=== PATIENT | male | born 1970 | race Caucasian/White ===

== ENCOUNTER 2018-04-16 18:43 | Inpatient (IN) | payer OTHER ==
[~2018-04-16] VITALS: Ht 185.4 cm; Wt 103.0 kg
--- NOTE | ~2018-04-16 | EKG ---
[address] [place] [address] ELECTROCARDIOGRAM REPORT Name: MAYA HARGROVE Room #: 360-P [facility] M.R.#: [id number] Admission: 04/16/18 Attend Phys: Cody Junior MD Discharge: Date of : 70 Report #: [id number] THIS REPORT FOR: //name// [facility] ED Test Date: 2018-04-16 Test Time: 18:59:31 Pat Name: MAYA HARGROVE Department: Room: 360 Gender: M Boxing Instructor: MADALYN : 1970 Requested By: Davi Carver Order Number: [id number] MD: Minh Mathias Measurements Intervals [place] Rate: 83 P: 46 MD: 158 QRS: -14 QRSD: 90 T: 21 QT: 369 QTc: 434 Interpretive Statements Sinus rhythm Left ventricular hypertrophy Compared to ECG 05/20/2012 07:21:09 Left ventricular hypertrophy now present Electronically Signed On 04-17-2018 8:05:01 PICK UP ATTENDANT by Minh Mathias [email or web address] <ELECTRONICALLY SIGNED> By: Minh Mathias MD, [facility] 04/17/18 08 58 58 Minh Mathias MD, FACC /EPI
[~2018-04-16 18:43] MED LIST: ABILIFY 2 MG2 MG PO; ADULT LOW DOSE81 MG PO; AMBIEN 10 MG TA10 MG PO; AMITRIPTYLINE H25 M2 PO; ATIVAN1 MG PO; CIPROFLOXACIN500 M1 PO; FLEXERIL PO; FLUOXETINE HCL40 MG PO; HYDROCHLOROTHIA25 M1 PO; HYDROCODON-ACE1 EAC7 PO; HYDROCODON-ACE1 EACH PO; HYDROCODONE; HYDROCODONE-AP1 EAC6 PO; LISINOPRIL20 MG PO; LUVOX CR150 MG PO; MULTIVITAMINS PO; NEURONTIN600 MG PO; PERCOCET 5-3251 EACH PO; PERCOCET 7.5-31 EACH PO; PERCOCET 7.5-51 EACH PO; PROZAC 20 MG20 M1 PO; RELAFEN750 MG PO; TIZANIDINE HCL 22 M1 PO; VERAPAMIL ER100 MG PO; WELLBUTRIN XL150 M1 PO; XANAX XR3 MG PO; ZANAFLEX2 M1 PO; ZOFRAN 4 MG ORAL4 M1 DIS
[2018-04-16 18:45] VITALS: BP 140/98
[2018-04-16] MEDS ORDERED: LYRICA 50 MG50 MG PO (19:00)
[2018-04-16 19:29] LABS: ABSOLUTE NEUTROPHILS 4.3 thou/uL (1.4-8.2); BASOPHILS 0.8 % (0.0-2.0); EOSINOPHILS 2.3 % (0.0-3.0); HEMATOCRIT 43.1 % (42.0-52.0); HEMOGLOBIN 15.1 gm/dL (14.0-18.0); LYMPHOCYTES 28.1 % (24.0-44.0); MCH 32.2 pg (26.0-34.0); MCV 91.9 fL (80.0-100.0); MONOCYTES 5.5 % (1.0-8.0); PLATELET COUNT 175 thou/uL (150-400); POLYS 63.3 % (36.0-66.0); RBC 4.69 mil/uL (4.50-6.00); RDW 13.4 % (10.5-14.5); WBC 6.8 thou/uL (4.0-11.0)
[2018-04-16 19:40] LABS: ANION GAP 10 mmol/L (7-16); BUN 11 mg/dL (7-18); CALCIUM 8.7 mg/dL (8.5-10.1); CHLORIDE 105 mmol/L (98-107); CO2 27 mmol/L (21-32); CREATININE 1.2 mg/dL (0.7-1.3); GLUCOSE 94 mg/dL (74-106); POTASSIUM 3.6 mmol/L (3.5-5.1); SODIUM 142 mmol/L (136-145)
[2018-04-16 19:45] LABS: URINE BILIRUBIN NEGATIVE (Negative); URINE BLOOD NEGATIVE (Negative); URINE CLARITY CLEAR; URINE COLOR YELLOW; URINE GLUCOSE-RANDOM* NEGATIVE (Negative); URINE KETONES NEGATIVE (Negative); URINE LEUKOCYTES-REFLEX NEGATIVE (Negative); URINE NITRITE-REFLEX NEGATIVE (Negative); URINE PROTEIN (DIPSTICK) NEGATIVE (Negative); URINE SPECIFIC GRAVITY <= 1.005 (1.005-1.035); URINE UROBILINOGEN 0.2 E.U./dl (0.2-1.0)
[2018-04-16 19:48] LABS: ALBUMIN 3.7 g/dL (3.4-5.0); SALICYLATE < 2.8 mg/dL (2.8-20.0); SGOT 31 U/L (15-37); SGPT 34 U/L (30-65); TOTAL BILIRUBIN 0.8 mg/dL (<0.1-1.0); TOTAL PROTEIN 7.3 g/dL (6.4-8.2); TROPONIN-I <0.06 ng/mL (<0.06)
[2018-04-16 19:53] LABS: AMP/METHAMP Negative (Negative); BARBITURATES Negative (Negative); BENZODIAZEPINES Negative (Negative); COCAINE Negative (Negative); METHADONE Negative (Negative); OPIATES Negative (Negative); PCP Negative (Negative)
[2018-04-16 21:00] VITALS: BP 130/85
[2018-04-16 21:30] VITALS: BP 125/92
[2018-04-16 22:06] VITALS: BP 138/91
[2018-04-17 05:11] VITALS: BP 164/92
[2018-04-17 06:41] LABS: CREATININE 1.2 mg/dL (0.7-1.3); POTASSIUM 3.5 mmol/L (3.5-5.1)
[2018-04-17 07:59] VITALS: BP 151/77
[2018-04-17 16:22] VITALS: BP 163/95
[2018-04-17 19:15] VITALS: BP 138/82
[2018-04-18 07:21] VITALS: BP 162/84
[2018-04-18 09:55] VITALS: BP 162/84
== END 2018-04-18 10:13 | disposition home or self-care (01) | DRG 918 ==
LOC: ER 18:43 → EROBS 20:25 → 3W 20:25 → ENTRNSPT 04-18 10:07 → EDTRNSPTSTS 04-18 10:10 → 3W 04-18 10:13
PROVIDERS: Emergency Medicine; Nurse Practitioner Family
DX: T42.6X1A Poisoning by other antiepileptic and sedative-hypnotic drugs, accidental (unintentional), initial encounter (principal); F84.5 Asperger's syndrome; I10 Essential (primary) hypertension; G43.909 Migraine, unspecified, not intractable, without status migrainosus; F31.9 Bipolar disorder, unspecified; F20.9 Schizophrenia, unspecified; F41.9 Anxiety disorder, unspecified; G47.00 Insomnia, unspecified; G89.29 Other chronic pain; M54.9 Dorsalgia, unspecified; E66.9 Obesity, unspecified; Z68.30 Body mass index [BMI] 30.0-30.9, adult; Z91.14 Patient's other noncompliance with medication regimen; Z91.5 Personal history of self-harm; Z86.73 Personal history of transient ischemic attack (TIA), and cerebral infarction without residual deficits; Z79.82 Long term (current) use of aspirin; Z79.899 Other long term (current) drug therapy; Z88.8 Allergy status to other drugs, medicaments and biological substances; Z91.041 Radiographic dye allergy status; Z91.040 Latex allergy status; Y92.89 Other specified places as the place of occurrence of the external cause
CPT/HCPCS: 10879

== ENCOUNTER 2019-08-05 16:12 | Emergency (ER) | payer OTHER ==
[~2019-08-05] VITALS: Ht 185.4 cm; Wt 95.3 kg
[~2019-08-05 16:12] MED LIST changes: +LYRICA 50 MG50 MG PO
[2019-08-05 16:27] LABS: ABSOLUTE NEUTROPHILS 3.5 thou/uL (1.4-8.2); EOSINOPHILS 2.7 % (0.0-3.0); HEMATOCRIT 47.9 % (42.0-52.0); HEMOGLOBIN 16.3 gm/dL (14.0-18.0); LYMPHOCYTES 37.1 % (24.0-44.0); MCH 31.3 pg (26.0-34.0); MCHC 34.1 g/dL (28.0-37.0); MCV 91.9 fL (80.0-100.0); MONOCYTES 6.4 % (1.0-8.0); PLATELET COUNT 193 thou/uL (150-400); POLYS 52.8 % (36.0-66.0); RBC 5.21 mil/uL (4.50-6.00); RDW 13.1 % (10.5-14.5); WBC 6.6 thou/uL (4.0-11.0)
[2019-08-05 16:33] LABS: ANION GAP 8 mmol/L (7-16); BUN 19 mg/dL (7-18); CALCIUM 9.3 mg/dL (8.5-10.1); CHLORIDE 104 mmol/L (98-107); CO2 31 mmol/L (21-32); CREATININE 1.2 mg/dL (0.7-1.3); GLUCOSE 98 mg/dL (74-106); SODIUM 143 mmol/L (136-145)
[2019-08-05 16:43] LABS: TROPONIN-I <0.06 ng/mL (<0.06)
[2019-08-05] MEDS ORDERED: MIRTAZAPINE15 M2 PO (17:13)
[2019-08-05] MEDS ORDERED: ZOLPIDEM TARTRA10 MG PO (17:13)
[2019-08-05] MEDS ORDERED: TEMAZEPAM30 MG PO (17:13)
[2019-08-05] MEDS ORDERED: TELMISARTAN40 MG PO (17:13)
[2019-08-05 17:14] LABS: URINE BILIRUBIN NEGATIVE (Negative); URINE BLOOD NEGATIVE (Negative); URINE CLARITY CLEAR; URINE COLOR YELLOW; URINE GLUCOSE-RANDOM* NEGATIVE (Negative); URINE KETONES NEGATIVE (Negative); URINE LEUKOCYTES-REFLEX NEGATIVE (Negative); URINE NITRITE-REFLEX NEGATIVE (Negative); URINE PROTEIN (DIPSTICK) NEGATIVE (Negative); URINE UROBILINOGEN 0.2 E.U./dl (0.2-1.0)
[2019-08-05] MEDS ORDERED: BISOPROLOL-HCT1 EACH PO (17:14)
[2019-08-05 17:28] LABS: AMP/METHAMP Negative (Negative); BARBITURATES Negative (Negative); BENZODIAZEPINES Negative (Negative); COCAINE Negative (Negative); METHADONE Negative (Negative); OPIATES Negative (Negative); PCP Negative (Negative)
[2019-08-05 19:12] VITALS: BP 171/98
--- NOTE | 2019-08-07 09:18 | EKG ---
[facility] [place] [address] ELECTROCARDIOGRAM REPORT Name: MAYA HARGROVE Room #: DEP [facility]#: [id number] Admission: 08/05/19 Attend Phys: Discharge: 08/05/19 Date of : 70 Report #: [id number] THIS REPORT FOR: cc: HIMANSHU - Marla family physician/PCP HIMANSHU - Marla family physician/PCP Minh Mathias MD [facility] THIS REPORT FOR: //name// [facility] ED Test Date: 2019-08-05 Test Time: 16:52:18 Pat Name: MAYA HARGROVE Department: Room: Gender: Rn Long Term Care: [facility] : 1970 Requested By: Jason Cortes Order Number: [id number] MD: Minh Mathias Measurements Intervals [place] Rate: 46 P: 54 DC: 182 QRS: 13 QRSD: 99 T: 40 QT: 447 QTc: 391 Interpretive Statements Sinus bradycardia Otherwise normal Compared to ECG 04/16/2018 18:59:31 No significant change was found Electronically Signed On 08-07-2019 9:17:09 RN SURGICAL PCU by Minh Mathias [email or web address] <ELECTRONICALLY SIGNED> By: Minh Mathias MD, FAC 08/07/19 0917 [id number] Minh Mathias MD, [facility] /EPI
== END 2019-08-05 19:12 | disposition home or self-care (01) ==
LOC: ER 16:12
PROVIDERS: Emergency Medicine
DX: T42.6X5A Adverse effect of other antiepileptic and sedative-hypnotic drugs, initial encounter (principal); I10 Essential (primary) hypertension; M54.9 Dorsalgia, unspecified; G89.29 Other chronic pain; G43.909 Migraine, unspecified, not intractable, without status migrainosus; F84.5 Asperger's syndrome; F41.9 Anxiety disorder, unspecified; F32.9 Major depressive disorder, single episode, unspecified; Z86.73 Personal history of transient ischemic attack (TIA), and cerebral infarction without residual deficits; Z91.040 Latex allergy status; Z88.6 Allergy status to analgesic agent; Z88.8 Allergy status to other drugs, medicaments and biological substances; Y92.89 Other specified places as the place of occurrence of the external cause